=== PATIENT | female | born 1975 | race African-American/Black ===

== ENCOUNTER 2017-06-25 17:21 | Emergency (ER) | payer SELFPAY ==
[2017-06-25 18:22] LABS: #Eosinphils 0.1 thou/uL (0.0-0.7); #Lymphocytes 3.8 thou/uL (1.20-3.40); #Neutrophils 7.5 thou/uL (1.40-6.50); %Basophils 0.2 % (0.0-1.0); %Lymphocytes 30.3 % (21.0-51.0); %Monocytes 7.7 % (0.0-10.0); Hematocrit 21.7 % (36.0-47.0); Mean Platelet Volume 10.5 fL (7.4-10.4); Red Blood Cell (RBC) Count 3.47 mill/uL (4.20-5.40); White Blood Cell (WBC) Count 12.4 thou/uL (4.8-10.8)
[2017-06-25 18:34] LABS: Anisocytosis MODERATE=16-30 cells (100X) (0-5/hpf); Hypochromia MODERATE=16-30 cells (100X) (0-5/hpf); Microcytosis MODERATE=15-30 cells (100X) (0-5/hpf); Ovalocytes SLIGHT = 2-5 cells (100X) (0-1/hpf); Polychromasia MODERATE = 3-4 cells (100X) (0-2/hpf); Schistocytes SLIGHT = 2-5 cells (100X) (0-1/hpf); Target Cells MODERATE= 6-15 cells (100X) (0-1/hpf); Tear Drops SLIGHT = 2-5 cells (100X) (0-1/hpf)
[2017-06-25 18:40] LABS: Anion Gap 11 mmol/L (10-20); BUN (Urea Nitrogen) 8 mg/dL (7.0-18.7); Calc. Creatinine Clearance 0 mL/min (70-130); Calcium 9.5 mg/dL (7.8-10.44); Carbon Dioxide 28 mmol/L (22-29); Chloride 103 mmol/L (98-107); Estimated GFR-MDRD 90
[2017-06-25] MEDS ORDERED: Ondansetron HCl/PF 4 MG/2 ML Vial ONE (19:57)
[2017-06-25 23:17] LABS: #Eosinphils 0.1 thou/uL (0.0-0.7); #Lymphocytes 3.2 thou/uL (1.20-3.40); #Neutrophils 6.4 thou/uL (1.40-6.50); %Basophils 0.2 % (0.0-1.0); %Eosinophils 1.3 % (0.0-10.0); %Lymphocytes 29.6 % (21.0-51.0); %Monocytes 8.9 % (0.0-10.0); Hematocrit 25.7 % (36.0-47.0); Mean Platelet Volume 10.6 fL (7.4-10.4); Red Blood Cell (RBC) Count 3.87 mill/uL (4.20-5.40); White Blood Cell (WBC) Count 10.6 thou/uL (4.8-10.8)
--- OUTSIDE RECORDS SUMMARY | 2017-06-30 08:25 | XMS | Clinical Summary ---
:1975 Author Organization [facility] Address [address] [place] [address] Phone Care Team Providers Name Role Phone , Primary Care Provider Unavailable Allergies Not on File Current Medications Not on file Active Problems Not on file Social History Tobacco Use Types Packs/Day Years Used Date Never Assessed Sex Assigned at Date Recorded Not on file Last Filed Vital Signs Not on file Plan of Treatment Not on file Results Not on filefrom Last 3 Months
--- OUTSIDE RECORDS SUMMARY | 2017-06-30 08:25 | XMS | Continuity of Care Document ---
:1975 Author Organization [facility] Care Team Providers Name Role Phone SUSAN SRIVASTAVA Primary Care Physician Unavailable Insurance Providers Payer Name Policy Number Subscriber Name Relationship MEDICAID PENDING VICK [place]RIS SELF/SAME PATIENT [employer] PENDING VICK CHRIS SELF/SAME PATIENT Advance Directives Directive Response Recorded Date/Time Advance Directive? N 06/25/17 11:52am Living Will? N 06/25/17 11:52am Health Care Proxy? N 06/25/17 11:52am Healthcare Power of Director Transition? N 06/25/17 11:52am Is the patient an Organ Donor? N 06/25/17 11:52am Chief Complaint and Reason for Visit Reason for Visit LOWER ABD PAIN Problems Active Medical Problems Problem Onset Date Recorded Date Status Contusion of leg, left Unknown 09/15/15 Active Elevated blood pressure (not hypertension) Unknown 09/15/15 Active Anemia Unknown 06/25/17 Active Obstructive uropathy Unknown 06/25/17 Active Cholelithiasis Unknown 06/25/17 Active Medications Current Home Medications Medication Dose Units Route Directions Days/Qty Instructions Start Date TRAMADOL HCL 50 MG By Mouth EVERY SIX HOURS 09/15/15 (TRAMADOL HCL 50 NEEDED as MG ODT TAB) 50 needed for PAIN MG TAB Social History Problem Response Recorded Date Recreational drugs? N 09/15/15 Alcohol? Y 06/25/17 Query Response Start Date Stop Date Smoking Status: Current Every Day Smoker Hospital Discharge Instructions No hospital discharge instructions. Plan of Care Discharge Date 06/25/17 Disposition OTHER TYPE INSTITUTION Condition at Discharge STABLE Forms Provided Discharge Form Prescriptions See Medications Section Referrals SUSAN SRIVASTAVA - Functional Status No functional status results. Allergies, Adverse Reactions, Alerts No known allergies. Immunizations No Known History of Immunizations. Vital Signs Vital Reading Collection Date/Time Result Blood Pressure 06/25/17 4:19pm 124/77 Blood Pressure Source 06/25/17 4:14pm Auto Cuff Temperature 06/25/17 4:19pm 98.1 F Temperature Source 06/25/17 11:46am Oral Respiratory Rate 06/25/17 4:14pm 18 Pulse Rate 06/25/17 4:19pm 99 Pulse Location 06/25/17 4:14pm Monitor Bedside Pulse Oximetry 06/25/17 4:19pm 99 Height 06/25/17 11:46am 5 ft 1 in Height 06/25/17 11:46am 154.94 cm Weight 06/25/17 11:46am 220 lb Weight 06/25/17 11:46am 99.79 kg Body Mass Index 06/25/17 11:46am 41.6 kg/m2 Results Laboratory Results Test Name Result Units Flags Reference Collection Result Comments Date/Time Date/Time White Blood 9.2 X 10^3 4.8-10.8 06/25/17 06/25/17 Count 12:03pm 12:33pm Red Blood Count 3.65 X 10^6 L 3.70-5.40 06/25/17 06/25/17 12:03pm 12:33pm Hemoglobin 6.2 g/dL CL 12.0-16.0 06/25/17 06/25/17 12:03pm 12:33pm ALERT (CRITICAL) VALUE - CALLED RESULTS TO AND VERBAL READ BACK FROM CHELA MOLINA RN @ 1232 06/25/17 LAB.CR 06/25/17 1233: HEMOGLOBIN previously reported as: 6.2 CL g/dL ALERT (CRITICAL) VALUE - CALLED RESULTS TO AND VERBAL READ BACK FROM CHELA MOLINA RN @ 1232 06/25/17 LAB.CR THIS IS A CORRECTED RESULT. Hematocrit 22.7 % L 37.0-47.0 06/25/17 06/25/17 12:03pm 12:33pm Mean Corpuscular 62.1 fl L 80.0-100.0 06/25/17 06/25/17 Volume 12:03pm 12:33pm Mean Corpuscular 17.0 pg L 27.0-31.0 06/25/17 06/25/17 Hemoglobin 12:03pm 12:33pm Mean Corpuscular 27.3 g/dl L 32.0-36.0 06/25/17 06/25/17 Hgb Concent Diff 12:03pm 12:33pm Red Cell 21.1 % H 11.5-14.5 06/25/17 06/25/17 Distribution 12:03pm 12:33pm Width Platelet Count 791 X 10^3 H 130-400 06/25/17 06/25/17 12:03pm 12:33pm Mean Platelet 6.5 fl L 7.4-10.4 06/25/17 06/25/17 Volume 12:03pm 12:33pm Granulocytes (%) 62.4 % 50.0-75.0 06/25/17 06/25/17 12:03pm 12:33pm Lymphocytes % 29.3 % 20.0-40.0 06/25/17 06/25/17 12:03pm 12:33pm Mid Range Cells 8.3 % 0.1-24.0 06/25/17 06/25/17 % (auto) 12:03pm 12:33pm Granulocytes # 5.7 X 10^3 1.8-6.4 06/25/17 06/25/17 12:03pm 12:33pm Lymphocytes # 2.7 X 10^3 1.2-3.6 06/25/17 06/25/17 12:03pm 12:33pm Mid Range Cells 0.8 X 10^3 0.0-1.8 06/25/17 06/25/17 # (auto) 12:03pm 12:33pm Manual YES 06/25/17 06/25/17 Differential 12:03pm 12:33pm Segmented 60 % 42-75 06/25/17 06/25/17 Neutrophils 12:03pm 12:53pm Band Neutrophils 4 % 2-10 06/25/17 06/25/17 12:03pm 12:53pm Lymphocytes 29 % 20-51 06/25/17 06/25/17 12:03pm 12:53pm Monocytes 6 % 2-9 06/25/17 06/25/17 12:03pm 12:53pm Eosinophils 1 % 1-4 06/25/17 06/25/17 12:03pm 12:53pm Basophils 0 % 0-1 06/25/17 06/25/17 12:03pm 12:53pm Platelet INCREASED A ADEQUATE 06/25/17 06/25/17 Estimate 12:03pm 12:53pm Platelet NORMAL NORMAL 06/25/17 06/25/17 Morphology 12:03pm 12:53pm Normal RBC SEE NORMAL 06/25/17 06/25/17 Morphology MORPHOLOGY 12:03pm 12:53pm Hypochromasia 2+ A NONE 06/25/17 06/25/17 12:03pm 12:53pm Microcytosis 1+ A NONE 06/25/17 06/25/17 12:03pm 12:53pm Sodium Level 140 mmol/L 135-144 06/25/17 06/25/17 12:03pm 12:42pm Potassium Level 3.3 mmol/L L 3.5-5.1 06/25/17 06/25/17 12:03pm 12:42pm Chloride Level 99 mmol/L L 101-111 06/25/17 06/25/17 12:03pm 12:42pm Carbon Dioxide 30 mmol/L 22-32 06/25/17 06/25/17 Level 12:03pm 12:42pm Anion Gap 14.3 mmol/L 06-2506/25/17 06/25/17 12:03pm 12:42pm Random Glucose 97 mg/dL 70-109 06/25/17 06/25/17 Random glucose > 200 mg/dL in a patient with typical 12:03pm 12:42pm symptoms of diabetes (polydipsia, polyuria and unexplained weight loss) satisfies ADA criteria for diabetes mellitus if confirmed by repeat testing on another day. Confirmation is unnecessary when acute metabolic decompensation with hyperglycemia is manifested. Reference: Report of the Expert Committee on the Diagnosis and Classification of Diabetes Mellitus. Diabetes Care, 20:1183, 1997. Creatinine 1.1 mg/dL H 0.44-1.00 06/25/17 06/25/17 12:03pm 12:42pm EGFR Note 66.9 63.8-143.2 06/25/17 06/25/17 eGFR (Estimated Glomerular Filtration Rate) 12:03pm 12:42pm Reference Range: >60 ml/min/1.73m eGFR calculation value obtained using the MDRD equation. The reportable reference ranges is recommended to be greater than 60 ml/min/1.73m. This is an estimation of the patient's GFR and clinical correlation is recommended. Blood Urea 6 mg/dL L 8-26 06/25/17 06/25/17 Nitrogen 12:03pm 12:42pm Calcium Level 9.9 mg/dL 8.9-10.3 06/25/17 06/25/17 12:03pm 12:42pm Albumin 3.6 g/dL 3.5-5.0 06/25/17 06/25/17 12:03pm 12:42pm Total Bilirubin 0.4 mg/dL 0.3-1.2 06/25/17 06/25/17 12:03pm 12:42pm Alkaline 59 IU/L 32-91 06/25/17 06/25/17 Phosphatase 12:03pm 12:42pm Total Protein 8.1 g/dL 6.5-8.1 06/25/17 06/25/17 12:03pm 12:42pm Alanine 14 IU/L 7-55 06/25/17 06/25/17 Aminotransferase 12:03pm 12:42pm (ALT/SGPT) Aspartate Amino 18 IU/L 15-41 06/25/17 06/25/17 Transf 12:03pm 12:42pm (AST/SGOT) Globulin 4.5 g/dL H 2.3-3.5 06/25/17 06/25/17 12:03pm 12:42pm Albumin/Globulin 0.8 L 1.2-2.2 06/25/17 06/25/17 Ratio 12:03pm 12:42pm Urine HCG, NEGATIVE NEGATIVE 06/25/17 06/25/17 If a negative result is obtained but is Qualitative 11:49am 12:43pm suspected, hCG levels may be too low or urine may be too dilute for detection. Another specimen should be collected after 48-72 hours and tested. If waiting is not medically advisable, the test result should be confirmed with a quantitative hCG test. Urine Color YELLOW YELLOW 06/25/17 06/25/17 11:49am 12:39pm Urine Appearance CLEAR CLEAR 06/25/17 06/25/17 11:49am 12:39pm Urine Glucose NEGATIVE mg/dL NEGATIVE 06/25/17 06/25/17 11:49am 12:39pm Urine Bilirubin NEGATIVE NEGATIVE 06/25/17 06/25/17 11:49am 12:39pm Urine Ketones NEGATIVE NEGATIVE 06/25/17 06/25/17 11:49am 12:39pm Urine Specific 1.020 1.002-1.03 06/25/17 06/25/17 [place] 0 11:49am 12:39pm Urine Blood NEGATIVE NEGATIVE 06/25/17 06/25/17 11:49am 12:39pm Urine pH 6.5 4.5-8.0 06/25/17 06/25/17 11:49am 12:39pm Urine Protein NEGATIVE mg/dL NEGATIVE 06/25/17 06/25/17 11:49am 12:39pm Urine 2.0 E.U./d A 0.2 06/25/17 06/25/17 Urobilinogen L 11:49am 12:39pm Urine Nitrite NEGATIVE NEGATIVE 06/25/17 06/25/17 11:49am 12:39pm Urine Leukocyte NEGATIVE NEGATIVE 06/25/17 06/25/17 Esterase 11:49am 12:39pm Urine NO NO 06/25/17 06/25/17 Microscopic 11:49am 12:39pm Indicated [facility] [address]IS [address] [id number] / [id number] [place], [place] [id number] 41 / F Adm: History of Pres Illness General Chief Complaint Gastrointestinal (M.ER) Stated Complaint LOWER ABD PAIN Date seen by MD 06/25/17 Time seen by 120 Source patient, family History limited by no limitations Reviewed nurses notes, vital signs, home medications, allergies History of Present Illness Initial Comments PT IS A 41YO F THAT PRESENTS WITH COMPLAINS OF RIGHT SIDED LOWER ABDOMINAL PAIN. ON GOING FOR ABOUT 3 DAYS, ASSOCIATED WITH DIZZINESS AND FAINTING SPELLS, PAIN AND DISCOMFORT. PT NOTES A HX OF KIDNEY STONES IN THE PAST Timing/Duration 3 DAYS Severity/Quality moderate, sharpness Location RLQ Torso - Front& Back [Embedded Image Not Available] 1) Radiation flank Activities at Onset rest Modifying Factors worse with defecating, worse with movement Associated Symptoms fatigue, rash, syncope Allergies Coded Allergies: No Known Drug Allergy (09/15/15) Prescriptions Active Scripts TRAMADOL HCL (TRAMADOL HCL 50 MG ODT TAB) 50 MG PO Q6HPRN PRN PAIN #20 TAB Prov: 09/15/15 Review of Systems Constitutional malaise, weakness EENTM denies no symptoms reported Respiratory denies no symptoms reported Cardiovascular denies no symptoms reported Gastrointestinal abdominal pain Genitourinary denies no symptoms reported Musculoskeletal denies no symptoms reported Skin denies no symptoms reported Past History History unobtainable due to no limitations Past Medical History Past Medical History No: Pertinent medical history. Other Medical Hx KIDNEY STONES Surgical History TUBAL LIGATION Social History Smoking Status: Never Smoker Physical Exam Physical Exam General Appearance mild distress EENT PERRL/EOMI Neck normal inspection Respiratory chest non-tender, lungs clear, normal breath sounds Cardiovascular regular rate/rhythm, no edema, no JVD Gastrointestinal normal inspection, soft, guarding, tenderness Torso - Front& Back [Embedded Image Not Available] 1) Back CVA tenderness (R) Extremities non-tender Neurologic/Psychiatric alert, appropriate mood/affect, oriented x 3 Skin normal color Progress Vitals Vital Signs Date Time Temp Pulse Resp B/P B/P Pulse O2 O2 Flow FiO2 Mean Ox Delivery Rate 06/25 1350 72 16 121/62 98 06/25 1310 72 18 187/83 100 06/25 1146 98.1 96 185/84 100 Lab and Rad Results& Orders Laboratory Tests 06/25 Range/Units 1149 Urines Urine Color YELLOW YELLOW Urine Appearance CLEAR CLEAR Urine pH 6.5 4.5 - 8.0 Ur Specific [place]lett 1.020 1.002 - 1.030 Urine Protein NEGATIVE NEGATIVE mg/dL Urine Ketones NEGATIVE NEGATIVE Urine Blood NEGATIVE NEGATIVE Urine Nitrite NEGATIVE NEGATIVE Urine Bilirubin NEGATIVE NEGATIVE Urine Urobilinogen 2.0 A 0.2 E.U./dL Ur Leukocyte Esterase NEGATIVE NEGATIVE Ur Microscopic Indic NO NO Urine Glucose NEGATIVE NEGATIVE mg/dL Urine HCG, Qual NEGATIVE NEGATIVE 06/25 Range/Units 1203 Chemistry Sodium 140 135 - 144 mmol/L Potassium 3.3 L 3.5 - 5.1 mmol/L Chloride 99 L 101 - 111 mmol/L Carbon Dioxide 30 22 - 32 mmol/L Anion Gap 14.3 10 - 20 mmol/L BUN 6 L 8 - 26 mg/dL Creatinine 1.1 H 0.44 - 1.00 mg/dL Random Glucose 97 70 - 109 mg/dL Calcium 9.9 8.9 - 10.3 mg/dL Total Bilirubin 0.4 0.3 - 1.2 mg/dL AST 18 15 - 41 IU/L ALT 14 7 - 55 IU/L Alkaline Phosphatase 59 32 - 91 IU/L Total Protein 8.1 6.5 - 8.1 g/dL Albumin 3.6 3.5 - 5.0 g/dL Globulin 4.5 H 2.3 - 3.5 g/dL Albumin/Globulin Ratio 0.8 L 1.2 - 2.2 EGFR Note 66.9 63.8 - 143.2 Hematology WBC 9.2 4.8 - 10.8 X 10^3 RBC 3.65 L 3.70 - 5.40 X 10^6 Hgb 6.2 CL 12.0 - 16.0 g/dL Hct 22.7 L 37.0 - 47.0 % MCV 62.1 L 80.0 - 100.0 fl MCH 17.0 L 27.0 - 31.0 pg MCHC Differential 27.3 L 32.0 - 36.0 g/dl RDW 21.1 H 11.5 - 14.5 % Plt Count 791 H 130 - 400 X 10^3 MPV 6.5 L 7.4 - 10.4 fl Gran % 62.4 50.0 - 75.0 % Mid Range % (Auto) 8.3 0.1 - 24.0 % Gran # 5.7 1.8 - 6.4 X 10^3 Mid Range # 0.8 0.0 - 1.8 X 10^3 Manual Differential YES Lymphocytes % 29.3 20.0 - 40.0 % Segmented Neutrophils 60 42 - 75 % Band Neutrophils 4 2 - 10 % Lymphocytes 29 20 - 51 % Lymphocytes # 2.7 1.2 - 3.6 X 10^3 Monocytes 6 2 - 9 % Eosinophils 1 1 - 4 % Basophils 0 0 - 1 % Platelet Estimate INCREASED A ADEQUATE Platelet Morphology NORMAL NORMAL Normal RBC Morphology SEE MORPHOLOGY NORMAL Hypochromasia 2+ A NONE Microcytosis 1+ A NONE 06/25 Range/Units 1304 Hematology Smear Path Review Pending Orders Procedure Date/time Status Z CT ABD& PELVIS WO CONTRAST 06/25 1305 Active Z CMP (Comp Metabolic Panel) 06/25 1203 Complete Z CBC 06/25 1203 Complete Z UPREG (URINE ,QUAL) 06/25 1149 Complete Z UA (URINALYSIS) 06/25 1149 Complete Details of Miscellaneous Nursing Order: XRAY Comments CT ABDO PELVIS 3MM OBSTRUCTIVE UROPATHY AT THE LEVEL PELVIC INLET ON RIGHT CHOLELITHIASIS Time PCP or Consult Called 1429 PCP or Consult w/Reason DR GONZALES, SYMPTOMATIC ANEMIA, ACCEPTED PT Departure Departure Time of Disposition 142 Disposition OTHER ACUTE CARE FACILITY Clinical Impression Primary Impression: Anemia Qualifiers: Anemia type: other cause Other causes of anemia: chronic disease, other Qualified Code: D63.8 - Anemia in other chronic diseases classified elsewhere Secondary Impressions: Cholelithiasis Qualifiers: Cholelithiasis location: gallbladder Cholecystitis presence: without cholecystitis Biliary obstruction: without biliary obstruction Qualified Code: K80.20 - Calculus of gallbladder without cholecystitis without obstruction Obstructive uropathy Condition STABLE Report created by: DUSTIN 06/25/17 1211 Report electronically signed by: PARTH CHENG MD 06/25/17 1431<<Signature on File>> Report cosigned by: Procedures No Known History of Procedures. Encounters Encounter Location Arrival/Admit Date Discharge/Depart Date Attending Provider Departed [place] 06/25/17 11:42am 06/25/17 4:19pm Memo CHENG [facility] PARTH BANERJEE [facility] Encounter Diagnosis Onset Date Anemia Obstructive uropathy Cholelithiasis
== END 2017-06-26 00:47 | disposition home or self-care (01) ==
LOC: ERS 17:21
DX: N92.0 Excessive and frequent menstruation with regular cycle (principal); D64.9 Anemia, unspecified; N20.0 Calculus of kidney; F17.210 Nicotine dependence, cigarettes, uncomplicated; Z79.899 Other long term (current) drug therapy
CPT/HCPCS: 36415; 36430; 80048; 85025; 86850; 86900; 86901; 96374; 96375; J2270; J2405; P9016